=== PATIENT | male | born 1970 | race American Indian/Alaskan Native ===

== ENCOUNTER 2017-06-10 12:25 | Inpatient (IN) | payer MEDICARE, MEDICAID ==
[2017-06-10 12:25] VITALS: BMI 28.8
--- NOTE | 2017-06-10 13:20 | ED PDOC ---
HPI: Psych/Substance Abuse Time Seen by Provider: 06/10/17 12:42 Chief Complaint (Nursing): Psychiatric Evaluation Chief Complaint (Provider): Depression History Per: Patient History/Exam Limitations: no limitations Onset/Duration Of Symptoms: Days (2-3) Additional Complaint(s): 46 yo male with history of HTN and depression presents with 2-3 days of depression and SI. Pt states he is hearing voices telling him to hurt himself. Pt states that he takes effexor and seroquel but has not taken hit in the 2-3 days because he feels it doesn't work. Pt states he would cut himself because he has a history of cutting. Past Medical History Reviewed: Historical Data, Nursing Documentation, Vital Signs Vital Signs: Last Vital Signs Temp 99.4 F 06/10/17 12:32 Pulse 89 06/10/17 12:32 Resp 20 06/10/17 12:32 BP 150/88 06/10/17 12:32 Pulse Ox 98 06/10/17 12:32 - Medical History PMH: Bipolar Disorder, Depression, Diabetes, HTN, Hypercholesterolemia, Personality Disorder, Schizophrenia Denies: Hepatitis, HIV, Chronic Kidney Disease, Seizures, Sexually Transmitted Disease - Surgical History Surgical History: Appendectomy, Hernia Repair - Family History Family History: States: Unknown Family Hx, Diabetes, Hypertension - Immunization History Hx Tetanus Toxoid Vaccination: Yes Hx Influenza Vaccination: No Hx Pneumococcal Vaccination: No - Home Medications Home Medications: Ambulatory Orders Medication Instructions Recorded Lisinopril [Zestril] 20 mg PO DAILY #30 tab 01/21/17 Lisinopril [Zestril] 20 mg PO DAILY #30 tab 03/20/17 Olanzapine [Zyprexa] 15 mg PO HS #30 tablet 03/20/17 Venlafaxine [Effexor XR] 225 mg PO DAILY #30 cer 03/20/17 amLODIPine [Norvasc] 5 mg PO DAILY #30 tab 03/20/17 traZODone [Desyrel] 100 mg PO HS PRN #30 tab 03/20/17 - Allergies Allergies/Adverse Reactions: Allergies Allergy/AdvReac Type Severity Reaction Status Date / Time No Known Allergies Allergy Verified 01/10/17 16:48 Review of Systems ROS Statement: Except As Marked, All Systems Reviewed And Found Negative Constitutional: Negative for: Fever, Chills Psych: Positive for: Depression, Psychosis Physical Exam - Reviewed Nursing Documentation Reviewed: Yes Vital Signs Reviewed: Yes - Physical Exam Appears: Positive for: Well, Non-toxic, No Acute Distress Head Exam: Positive for: ATRAUMATIC, NORMAL INSPECTION, NORMOCEPHALIC Skin: Positive for: Normal Color, Warm, DRY Eye Exam: Positive for: Normal appearance ENT: Positive for: Normal ENT Inspection Neck: Positive for: Normal, Painless ROM Cardiovascular/Chest: Positive for: Regular Rate, Rhythm Respiratory: Positive for: CNT, Normal Breath Sounds Back: Positive for: Normal Inspection Extremity: Positive for: Normal ROM Neurologic/Psych: Positive for: Alert, Oriented - Laboratory Results Result Diagrams: 06/10/17 14:26 06/10/17 14:26 - ECG O2 Sat by Pulse Oximetry: 98 Medical Decision Making Medical Decision Making: Crisis evaluation completed. Disposition - Clinical Impression Clinical Impression: Schizoaffective disorder, depressive type, Schizo affective schizophrenia - Patient ED Disposition Is Patient to be Admitted: Yes - Disposition Disposition Time: 15:03 Condition: STABLE Forms: [employer] (Moroccan)
[2017-06-10 14:33] LABS: BASO % 1.2 % (0.0-2.0); EOS # 0.2 K/uL (0.0-0.7); EOS % 4.8 % (0.0-4.0); HEMOGLOBIN 13.2 g/dL (12.0-18.0); LYMPH # 1.4 K/uL (1.0-4.3); MEAN CORPUSCULAR HEMOGLOBIN 26.5 pg (27.0-31.0); MEAN CORPUSCULAR HGB CONC 32.7 g/dL (33.0-37.0); MONO # 0.3 K/uL (0.0-0.8); MONO % 9.1 % (0.0-10.0); NEUT # 1.5 K/uL (1.8-7.0); NEUT % 43.9 % (50.0-75.0); NRBC % 0.1 % (0.0-0.0); RED CELL DISTRIBUTION WIDTH 14.8 % (11.5-14.5); WHITE BLOOD COUNT 3.4 K/uL (4.8-10.8)
[2017-06-10 14:37] LABS: SQUAMOUS EPITHIAL < 1 /hpf (0-5); URINE BILIRUBIN NEGATIVE (NEGATIVE); URINE BLOOD NEGATIVE (NEGATIVE); URINE CLARITY SLIGHTY-CLOUDY (Clear); URINE COLOR YELLOW (YELLOW); URINE GLUCOSE (UA) NEG (Normal); URINE LEUKOCYTE ESTERASE NEG Leu/uL (Negative); URINE PROTEIN 30 mg/dL (NEGATIVE); URINE UROBILINOGEN 0.2-1.0 mg/dL (0.2-1.0)
[2017-06-10 14:41] LABS: BENZODIAZEPINES, UR NEGATIVE (NEGATIVE); PHENCYCLIDINE, UR NEGATIVE (NEGATIVE)
[2017-06-10 14:44] LABS: BARBITURATES, UR NEGATIVE (NEGATIVE); OPIATES, UR NEGATIVE (NEGATIVE)
[2017-06-10 14:51] LABS: ALBUMIN 4.1 g/dL (3.5-5.0); CALCIUM 9.3 mg/dL (8.4-10.2); GFR AFRICAN-AMERICAN > 60; GFR NON-AFRICAN AMERICAN > 60
[2017-06-10 14:59] LABS: ALT/SGPT 57 U/L (21-72); AST/SGOT 44 U/L (17-59); BLOOD UREA NITROGEN 10 mg/dl (9-20)
--- NOTE | 2017-06-10 14:59 | RAD ---
HISTORY: admission COMPARISON: 06/05/2015 FINDINGS: LUNGS: No active pulmonary disease. PLEURA: No significant pleural effusion identified, no pneumothorax apparent. CARDIOVASCULAR: No radiographic findings to suggest acute or significant cardiovascular disease. OSSEOUS STRUCTURES: No significant abnormalities. VISUALIZED UPPER ABDOMEN: Normal. OTHER FINDINGS: None. IMPRESSION: No active disease. No significant interval change compared to the prior examination(s).
[2017-06-10 17:03] VITALS: O2SAT 99
--- NOTE | 2017-06-10 18:26 | PCM.BM ---
<[place],Janelle - Last Filed: 06/10/17 18:24> Treatment Plan Problems - Problems identified on initial assessmt Hopelessness/Helplessness Date Initiated: 06/10/17 Time Initiated: 18:24 Assessment reference: NA Status: Active Treatment assets and liabiliti Patient Assests: cooperative, ADL independent Patient Liabilities: substance abuse - Milieu Protocol Maintain good personal hygiene: daily Encourage regular showers, every shift Remind patient to perform daily oral care, every shift Assist patient to perform ADL's Maintain personal safety: every shift Educate patient to report safety concerns to staff, every shift Monitor environment for contraband/sharps Medication safety: Monitor for expected outcome, potential side effects: every shift, Assess barriers to learning: every shift, Assess readiness for medication education: every shift <Karen Barone - Last Filed: 06/12/17 16:29> Treatment assets and liabiliti Patient Assests: adapts well, cooperative, resourceful, self-reliant, ADL independent, physically healthy, negotiates basic needs, cognitively intact Patient Liabilities: live alone (homeless), financial problems, poor support system, substance abuse Family Contact Family involvement: Famliy/SO not involved Family contact: Patient declines to allow family contact at present - Goals for Treatment Patient goals for treatment: Patient to continue stabilization on 3NP through medication management and group/supportive therapy. Patient to be encouraged to attend groups regularly to promote self-awareness, sobriety,compliance and improve insight, coping skills and self-esteem. Patient to be provided with referral for appropriate level of aftercare to reduce risk of future hospitalizations and ensure safety in the community. Pt. requesting to have referrals to inpatient rehabs initiated. Assistant Director Of Admissions provided psychoeducation regarding nature of tx provided on 3NP and explained that referrals will be initiated but that it is not guaranteed that patient will be provided with a rehab bed immediately upon discharge secondary to wait lists and pts negative toxicology. Assistant Director Of Admissions explained that in the event that patient is stabilized prior to rehab bed being made available, patient will be discharged with outpatient mental health/substance abuse services and will have to follow-up with rehab referrals independently. Patient expressed understanding of the above and is agreeable. Discharge/Continuing Care - Education Needs Education Needs: Patient Medication, Patient Diagnosis/Disease Process, Patient Coping Skills, Patient Community resources, Patient Aftercare Safety Plan - Discharge Discharge Criteria: Tolerates medication w/o severe side effects, Free of Suicidal thoughts, Free of paranoid thoughts, Normal sleep pattern, Ability to care for self, No longer exhibiting s/s of withdrawal, Reduction of target symptoms Discharge to:: Long-Term, Substance Abuse Rehab, Other (inpt rehab vs [facility]) - Treatment Team Participation Patient/Family/SO Statement: 06/12/17 16:31 Pt attended tx team this morning and was able to fully engage in discussion regarding progress on 3NP and tx goal. Pt. requesting to have referrals to inpatient rehabs initiated. Assistant Director Of Admissions provided psychoeducation regarding nature of tx provided on 3NP and explained that referrals will be initiated but that it is not guaranteed that patient will be provided with a rehab bed immediately upon discharge secondary to wait lists and pts negative toxicology. Assistant Director Of Admissions explained that in the event that patient is stabilized prior to rehab bed being made available, patient will be discharged with outpatient mental health/ substance abuse services and will have to follow-up with rehab referrals independently. Patient expressed understanding of the above and is agreeable. Pt. reports improvement in sxs of depression and anxiety since admission. Pt. reports improvement in sleep. Pt. continues to report AH but to a lesser degree than upon admission. Discussed with Family/SO: No Was Patient/Family/SO present at Treatment Team Meeting: Yes <Rafita Hennessy - Last Filed: 06/17/17 14:20> - Diagnosis (1) Depression Status: Acute Interventions: 06/17/17 14:19 psychotherapy , pharmacotherapy
[2017-06-10] MEDS ORDERED: Alum-Mag Hydrox-Simethicone Susp (30 mL) PO PRN (20:13)
[2017-06-10] MEDS ORDERED: DiphenhydrAMINE 50 mg/ml Inj IM PRN (20:13)
[2017-06-10] MEDS ORDERED: Magnesium Hydroxide Susp 30 ml UD PO PRN (20:13)
--- NOTE | 2017-06-11 07:34 | CARD ---
APPROVED REPORT EKG Measurement Heart [id number] <Conclusion> Normal sinus rhythm Normal ECG
[2017-06-11 08:35] LABS: T4 4.55 ug/dl (5.5-11.0)
--- NOTE | 2017-06-11 14:14 | PCM.PSYCH ---
Initial Psychiatric Evaluation - Initial Psychiatric Evaluation Type of Admission: Voluntary Legal Status: Capacity Chief Complaint (in patient's own words): I am depressed and hearing voices Patient's Reaction to Hospitalization: pt requested help History of Present Illness and Precipitating Events: pt with previous psychiatric diagnosis of schizoaffective disorder, non compliant with medications or follow up, pt has been increasingly depressed due to of a family member and being homeless, started to experience suicidal ideations with plan to cut his wrist came to ER seeking help, pt reported low energy, poor interest in any activity, non command auditory hallucinations putting him down, passive suicidal ideations without active plan or intent on the unit, denied homicidal ideations, urine toxicology is negative Current Medications: Active Medications Generic Name Dose Route Start Last Admin Trade Name Freq PRN Reason Stop Dose Admin Acetaminophen 650 mg 06/10/17 20:13 Tylenol 325mg Tab PO Q4 PRN Pain, moderate (4-7) Al Hydrox/Mg Hydrox/Simethicone 30 ml 06/10/17 20:13 Maalox Plus 30 Ml PO Q4 PRN Dyspepsia Benztropine Mesylate 0.5 mg 06/11/17 17:00 Cogentin PO BID [place] Diphenhydramine HCl 50 mg 06/10/17 20:13 Benadryl IM Q6 PRN Extrapyramidal S/S Unable PO Diphenhydramine HCl 50 mg 06/10/17 20:13 06/11/17 13:55 Benadryl PO 50 mg Q6 PRN Administration Extrapyramidal Symptoms Diphenhydramine HCl 50 mg 06/10/17 20:18 06/10/17 21:13 Benadryl PO 50 mg HS PRN Administration Sleep Haloperidol 5 mg 06/10/17 20:13 06/11/17 13:55 Haldol PO 5 mg Q4 PRN Administration Agitation Haloperidol Lactate 5 mg 06/10/17 20:13 Haldol IM Q4 PRN Agitation, Unable to Take PO Lorazepam 2 mg 06/10/17 20:13 Ativan IM Q4 PRN Anxiety/Agitation,Unable PO Lorazepam 2 mg 06/10/17 20:13 06/11/17 13:55 Ativan PO 2 mg Q4 PRN Administration Anxiety/Agitation Magnesium Hydroxide 30 ml 06/10/17 20:13 Milk Of Magnesia PO HS PRN Constipation Mirtazapine 7.5 mg 06/11/17 22:00 Remeron PO HS [place] Risperidone 1 mg 06/11/17 17:00 Risperdal Tab PO BID [place] Past Psychiatric History - Past Psychiatric History Explanation of prior treatment: multiple inpatient hospitalizations, hx of non compliance History of Abuse: denied History of ETOH/Drug Use: denied Pertinent Medical Hx (Current Medical&Sleep Prob, Allergies): Allergies Allergy/AdvReac Type Severity Reaction Status Date / Time No Known Allergies Allergy Verified 01/10/17 16:48 Lisinopril [Zestril] 20 mg PO DAILY 06/10/17 QUEtiapine [SEROquel] 300 mg PO HS 06/10/17 Venlafaxine [Effexor XR] 150 mg PO DAILY 06/10/17 amLODIPine [Norvasc] 5 mg PO DAILY 06/10/17 Mental Status Examination - Personal Presentation Personal Presentation: Looks older than stated age - Affect Affect: Constricted, Depressed - Motor Activity Motor Activity: Psychomotor Retardation - Reliability in Providing Information Reliability in Providing Information: Fair - Mood Mood: Depressed, Anxious - Formal Thought Process Formal Thought Process: Circumstantial - Hallucinations/Delusions Hallucinations: Auditory Additional comments: pt eported non command auditory hallucinations - Obsessions/Compulsions Obsessions: No Compulsions: No - Cognitive Functions Orientation: Person, Place Sensorium: Alert Attention/Concentration: Attentive Abstract Thinking: [place] Estimate of Intelligence: Below average Judgement: Imparied, as evidence by: Poor judgement, Imparied, as evidence by: Lack of insight into illness - Risk Risk: Diminished functioning - Strength & Assets Inventory Strength & Assets Inventory: Life experience - Limitations Additional comments: homeless DSM 5 DX - DSM 5 DSM 5 Diagnosis: schizoaffective disorder depressed - Recommended/Plan of Treatment Treatment Recommendations and Plan of Treatment: start risperdal 1mg bid with plan to uptitrate , cogentin 0.5 mg bid remeron 7.5mg qhs group and supportive therapy
--- NOTE | 2017-06-11 18:50 | CP.PCM.CON ---
History of Present Illness - History of Present Illness History of Present Illness: Reason for consult: per hospital protocol HPI: 46 year old male PMH schizoaffective disorder and HTN admitted to psych for noncompliance with medications. No other complaints at this time HD stable NAD. ros: per HPI all other systems reviewed and negative Past Patient History - Infectious Disease Hx of Infectious Diseases: None - Tetanus Immunizations Tetanus Immunization: Unknown - Past Medical History & Family History Past Medical History?: Yes - Past Social History Smoking Status: Heavy Smoker > 10 Cigarettes Daily - CARDIAC Hx Cardiac Disorders: Yes (hypertension) - PULMONARY Hx Tuberculosis: No - NEUROLOGICAL Hx Seizures: No - HEENT Hx HEENT Problems: No - RENAL Hx Chronic Kidney Disease: No - ENDOCRINE/METABOLIC Hx Endocrine Disorders: No (DM II-denies) - HEMATOLOGICAL/ONCOLOGICAL Hx Human Immunodeficiency Virus (HIV): No - INTEGUMENTARY Hx Dermatological Problems: No - MUSCULOSKELETAL/RHEUMATOLOGICAL Hx Musculoskeletal Disorders: No - GASTROINTESTINAL Hx Gastrointestinal Disorders: No Other/Comment: HX OF APPENDECTOMY 1982 - GENITOURINARY/GYNECOLOGICAL Hx Sexually Transmitted Disorders: No - PSYCHIATRIC Hx Anxiety: Yes Hx Bipolar Disorder: (as stated) Hx Depression: Yes Hx Schizophrenia: Yes Hx Substance Use: Yes - SURGICAL HISTORY Hx Appendectomy: Yes - ANESTHESIA Hx Anesthesia: Yes Hx Anesthesia Reactions: No Meds Allergies/Adverse Reactions: Allergies Allergy/AdvReac Type Severity Reaction Status Date / Time No Known Allergies Allergy Verified 01/10/17 16:48 - Medications Medications: Current Medications Acetaminophen (Tylenol 325mg Tab) 650 mg PO Q4 PRN PRN Reason: Pain, moderate (4-7) Al Hydrox/Mg Hydrox/Simethicone (Maalox Plus 30 Ml) 30 ml PO Q4 PRN PRN Reason: Dyspepsia Amlodipine Besylate (Norvasc) 5 mg PO DAILY [facility] Benztropine Mesylate (Cogentin) 0.5 mg PO BID [facility] Last Admin: 06/11/17 17:26 Dose: 0.5 mg Diphenhydramine HCl (Benadryl) 50 mg IM Q6 PRN PRN Reason: Extrapyramidal S/S Unable PO Diphenhydramine HCl (Benadryl) 50 mg PO Q6 PRN PRN Reason: Extrapyramidal Symptoms Last Admin: 06/11/17 13:55 Dose: 50 mg Diphenhydramine HCl (Benadryl) 50 mg PO HS PRN PRN Reason: Sleep Last Admin: 06/10/17 21:13 Dose: 50 mg Haloperidol (Haldol) 5 mg PO Q4 PRN PRN Reason: Agitation Last Admin: 06/11/17 13:55 Dose: 5 mg Haloperidol Lactate (Haldol) 5 mg IM Q4 PRN PRN Reason: Agitation, Unable to Take PO Lisinopril (Zestril) 20 mg PO DAILY [place] Lorazepam (Ativan) 2 mg IM Q4 PRN PRN Reason: Anxiety/Agitation,Unable PO Lorazepam (Ativan) 2 mg PO Q4 PRN PRN Reason: Anxiety/Agitation Last Admin: 06/11/17 13:55 Dose: 2 mg Magnesium Hydroxide (Milk Of Magnesia) 30 ml PO HS PRN PRN Reason: Constipation Mirtazapine (Remeron) 7.5 mg PO HS [place] Risperidone (Risperdal Tab) 1 mg PO BID [place] Last Admin: 06/11/17 17:26 Dose: 1 mg Physical Exam - Constitutional Appears: Non-toxic, No Acute Distress - Head Exam Head Exam: ATRAUMATIC, NORMOCEPHALIC - Eye Exam Eye Exam: EOMI, PERRL - ENT Exam ENT Exam: Mucous Membranes Moist, Normal Oropharynx - Respiratory Exam Respiratory Exam: Clear to Auscultation Bilateral, NORMAL BREATHING PATTERN - Cardiovascular Exam Cardiovascular Exam: RRR, +S1, +S2 - GI/Abdominal Exam GI & Abdominal Exam: Normal Bowel Sounds, Soft - Extremities Exam Extremities exam: Positive for: normal capillary refill, normal inspection, pedal pulses present - Back Exam Back exam: absent: CVA tenderness (L), CVA tenderness (R) - Neurological Exam Neurological exam: Alert, Oriented x3 - Psychiatric Exam Psychiatric exam: Normal Affect, Normal Mood - Skin Skin Exam: Dry, Warm Results - Vital Signs Recent Vital Signs: Last Vital Signs Temp 97.7 F 06/11/17 16:58 Pulse 71 06/11/17 16:58 Resp 20 06/11/17 16:58 BP 162/96 H 06/11/17 16:58 Pulse Ox 99 06/10/17 17:02 - Labs Result Diagrams: 06/10/17 14:26 06/10/17 14:26 Labs: Laboratory Results - last 24 hr 04/06/11/17 06/11/17 07:49 07:49 07:49 Hemoglobin A1c 6.5 Triglycerides 352 H D Cholesterol 266 H LDL Cholesterol Direct 142 H HDL Cholesterol 34 Thyroxine (T4) 4.55 L TSH 3rd Generation 3.35 RPR Nonreactive Assessment & Plan - Assessment and Plan (Free Text) Plan: HTN continue norvasc and lisinopril
--- NOTE | 2017-06-12 15:11 | PCM.PYCHPN ---
Psychiatric Progress Note - Psychiatric Progress Note Patient seen today, length of contact: pt evaluated discussed with team chart reviewed Patient Chief Complaint: I slept better but I AM hearing voices Problems Identified/Issues Discussed: PT ON EVALUATION WITH TREATMENT TEAM, CALM COOPERATIVE CONTINUES TO FEEL DEPRESSED , REPORTED NON COMMAND AUDITORY HALLUCINATIONS, DISCUSSED WITH PT INCREASING DOSE OF RISPERIDONE, DENIED ANY CURRENT SUICIDAL OR HOMICIDAL IDEATIONS, NO REPORTED SIDE EFFECT OF MEDICATIONS Medical Problems: multiple inpatient hospitalizations, hx of non compliance DSM 5 Symptoms Update: SCHIZOAFFECTIVE DISORDER Medication Change: Yes (INCREASE RISPERIDONE) Medical Record Reviewed: Yes Mental Status Examination - Cognitive Function Orientation: Person, Place Attention: WNL Concentration: WNL Association: WNL Fund of Knowledge: Poor Decription of patient's judgement and insights: FAIR INSIGHT AND JUDGMENT - Mood Mood: Depressed, Anxious - Affect Affect: Constricted, Depressed - Formal Thought Process Formal Thought Process: Circumstantial Psychotic Thoughts and Behaviors: REPORTED NON COMMAND AUDITORY HALLUCINATIONS - Suicidal Ideation Suicidal Ideation: No - Homicidal Ideation Homicidal Ideation: No Goal/Treatment Plan - Goal/Treatment Plan Need for Continued Stay: Severe depression anxiety, Discharge may exacerbated symptoms Progress Toward Problem(s) and Goals/Treatment Plan: increase risperdal 2mg bid with plan to uptitrate , cogentin 0.5 mg bid remeron 7.5mg qhs group and supportive therapy
[2017-06-12] MEDS ORDERED: DiphenhydrAMINE 50 mg/ml Inj IM STA (19:45)
--- NOTE | 2017-06-13 19:20 | PCM.PYCHPN ---
Psychiatric Progress Note - Psychiatric Progress Note Patient seen today, length of contact: pt evaluated discussed with team chart reviewed Patient Chief Complaint: I had a reaction to risperidone Problems Identified/Issues Discussed: PT on evaluation reported having side effect to risperidone with tightness of the jaw.pt continues to feel down and reported non command auditory hallucinations discussed with pt discontinuing risperidone and starting seroquel pt denied any current suicidal or homicidal ideations, compliant with treatment Medical Problems: multiple inpatient hospitalizations, hx of non compliance Medication Change: Yes (discontinue risperidone) Medical Record Reviewed: Yes Mental Status Examination - Cognitive Function Orientation: Person, Place Attention: WNL Concentration: WNL Association: WNL Fund of Knowledge: Poor Decription of patient's judgement and insights: FAIR INSIGHT AND JUDGMENT - Mood Mood: Depressed, Anxious - Affect Affect: Constricted, Depressed - Formal Thought Process Formal Thought Process: Circumstantial Psychotic Thoughts and Behaviors: REPORTED NON COMMAND AUDITORY HALLUCINATIONS - Suicidal Ideation Suicidal Ideation: No - Homicidal Ideation Homicidal Ideation: No Goal/Treatment Plan - Goal/Treatment Plan Need for Continued Stay: Severe depression anxiety, Discharge may exacerbated symptoms Progress Toward Problem(s) and Goals/Treatment Plan: discontinue risperidone start seroquel 50mg bid and 100mg qhs with plan to uptitrate discontinue remeron group and supportive therapy
--- NOTE | 2017-06-14 14:06 | PCM.PYCHPN ---
Psychiatric Progress Note - Psychiatric Progress Note Patient seen today, length of contact: pt evaluated discussed with team chart reviewed Patient Chief Complaint: I still hear the voices but they are less Problems Identified/Issues Discussed: PT on evaluation reported better sleep, improved appetite, feeling better with cross titrating of risperdone with seroquel, pt reported continues to experience non command auditory hallucinations , rating them 5/10, continues to feel down and relates that to current libving situation and financial stressors , denied any current suicidal or homicidal ideations , compliant with medications encouraged to attend groups Medical Problems: multiple inpatient hospitalizations, hx of non compliance DSM 5 Symptoms Update: schizoaffective disorder depressed Medication Change: No Medical Record Reviewed: Yes Mental Status Examination - Cognitive Function Orientation: Person, Place Attention: WNL Concentration: WNL Association: WNL Fund of Knowledge: Poor Decription of patient's judgement and insights: FAIR INSIGHT AND JUDGMENT - Mood Mood: Depressed, Anxious - Affect Affect: Constricted, Depressed - Formal Thought Process Formal Thought Process: Circumstantial Psychotic Thoughts and Behaviors: pt reporting non command auditory hallucinations - Suicidal Ideation Suicidal Ideation: No - Homicidal Ideation Homicidal Ideation: No Goal/Treatment Plan - Goal/Treatment Plan Need for Continued Stay: Severe depression anxiety, Discharge may exacerbated symptoms Progress Toward Problem(s) and Goals/Treatment Plan: seroquel 50mg bid and 100mg qhs with plan to uptitrate group and supportive therapy Estimated Date of D/C: 06/18/17
--- NOTE | 2017-06-15 08:21 | PCM.PYCHPN ---
Psychiatric Progress Note - Psychiatric Progress Note Patient seen today, length of contact: pt evaluated discussed with team chart reviewed Patient Chief Complaint: pt has been less depressed and less anxiius and reports decrease in hallucinations and denies command hallucinations.pt denies suicidal ideation but still with poor insight and need further stabilization. Medication Change: No Medical Record Reviewed: Yes Mental Status Examination - Cognitive Function Orientation: Person, Place Attention: WNL Concentration: WNL Association: WNL Fund of Knowledge: Poor - Mood Mood: Depressed, Anxious - Affect Affect: Constricted, Depressed - Formal Thought Process Formal Thought Process: Circumstantial - Suicidal Ideation Suicidal Ideation: No - Homicidal Ideation Homicidal Ideation: No Goal/Treatment Plan - Goal/Treatment Plan Need for Continued Stay: Severe depression anxiety, Discharge may exacerbated symptoms Progress Toward Problem(s) and Goals/Treatment Plan: will continue to titrate seroquel to stabilize the pt and engage pt in therapy and groups. will continue to with disposition as per dr buenrostro Estimated Date of D/C: 06/18/17
[2017-06-16 16:47] VITALS: RESP 18
[2017-06-17 08:25] VITALS: BP 136/89
[2017-06-17 09:31] VITALS: PULSE 67; TEMP 96.7
--- NOTE | 2017-06-17 14:27 | PCM.PYCHDC ---
Mental Status Examination - Mental Status Examination Orientation: Person, Place, Situation Memory: Intact Mood: Neutral Affect: Broad Speech: Appropriate Attention: WNL Concentration: WNL Association: WNL Fund of Knowledge: WNL Formal Thought Process: No Impairment Description of patient's judgement and insight: FAIR INSIGHT AND JUDGMENT Psychotic Thoughts and Behaviors: pt denied any current psychotic symptoms, non elicited Suicidal Ideation: No Current Homicidal Ideation?: No Discharge Summary - Discharge Note Reason for Hospitalization: pt requested help pt with previous psychiatric diagnosis of schizoaffective disorder, non compliant with medications or follow up, pt has been increasingly depressed due to of a family member and being homeless, started to experience suicidal ideations with plan to cut his wrist came to ER seeking help, pt reported low energy, poor interest in any activity, non command auditory hallucinations putting him down, passive suicidal ideations without active plan or intent on the unit, denied homicidal ideations, urine toxicology is negative Consultations:: List each consultation separately and include: 1. Reason for request. 2. Findings. 3. Follow-up Summary of Hospital Course include:: 1. Description of specific treatment plan utilized for patients during their course of treatmen. 2. Summarize the time- course for resolution of acute symptoms and/or regressed behaviors. 3. Describe issues identified and worked on during hospitalization. 4. Describe medication utilized. 5. Describe medical problems identified and treated. 6. Reassessment of suicide risk Summary of Hospital Course: pt on admission was started on risperidone, pt however developed side effects with difficulty swallowing, risperidone was discontinued and patient was started on seroquel, It was uptitrated to 300mg daily, pt reported clearing off of the auditory hallucinations, he also presented gradually with less depressed mood and brighter affect, CBT motivational and supportive therapy provided pt on discharge mental status was stable, denied any current suicidal or homicidal ideations, denied perceptual disturbances, no reported side effects of medications - Final Diagnosis (DSM 5) Condition upon Discharge: STABLE DSM 5: schizoaffective disorder depressed Disposition: HOME/ ROUTINE Follow-up Treatment Plan: seroquel 50mg bid and 100mg qhs with plan to uptitrate group and supportive therapy Prescriptions/Medication Reconciliation: QUEtiapine [SEROquel] 200 mg PO HS 30 Days #30 tab QUEtiapine [SEROquel] 50 mg PO BID 30 Days #60 tab - Antipsychotic Medications Pt discharged on 2 or more routine antipsychotic medications: No
== END 2017-06-17 10:50 | disposition home or self-care (01) | DRG 885 ==
LOC: H.ER 12:25 → H.ERHOLD 15:58 → H.PSYCH 17:20
PROVIDERS: ADMIT Psychiatry & Neurology Psychiatry; ATTEND Psychiatry & Neurology Psychiatry
PROC: GZHZZZZ Group Psychotherapy (ICD-10-PCS; principal; 2017-06-11)
PROC: GZ51ZZZ Individual Psychotherapy, Behavioral (ICD-10-PCS; 2017-06-11)
DX: F25.1 Schizoaffective disorder, depressive type (principal); F31.9 Bipolar disorder, unspecified; E78.00 Pure hypercholesterolemia, unspecified; F60.9 Personality disorder, unspecified; I10 Essential (primary) hypertension; R13.10 Dysphagia, unspecified; Z90.49 Acquired absence of other specified parts of digestive tract; Z91.14 Patient's other noncompliance with medication regimen; Z91.19 Patient's noncompliance with other medical treatment and regimen; Z91.5 Personal history of self-harm; F41.9 Anxiety disorder, unspecified; Z79.899 Other long term (current) drug therapy; F17.210 Nicotine dependence, cigarettes, uncomplicated